=== PATIENT | male | born 1985 | race American Indian/Alaskan Native ===

== ENCOUNTER 2021-07-04 07:35 | Day surgery (SDC) | payer BC ==
[~2021-07-04 07:35] MED LIST: SODIUM CHLORIDE 0.9% 1000 ML 1,000 ML IV SCH
[2021-07-04] MEDS ORDERED: WATER FOR IRRIG STERILE 1,000 ML BOTTLE ONE (07:48)
[2021-07-04] MEDS ORDERED: WATER FOR IRRIG STERILE 250 ML BOTTLE IR ONE (07:49)
[2021-07-04] MEDS ORDERED: propofoL 200 MG/20 ML VIAL IV ONE ×2 (08:08)
--- NOTE | 2021-07-04 09:11 | Procedure Note ---
Date of procedure: 07/04/21 Pre-op diagnosis: Abdominal Pain/ Colitis Post-op diagnosis: other (R/O Microscopic Colitis/ R/O Ileitis/Minor, Internal Hemorrhoids/ No Colon Polyps or diverticular disease noted) Procedure: Colonoscopy with biopsy Anesthesia: MAC Surgeon: PRIYANK ORTIZ Estimated blood loss: minimal Pathology: list Specimen disposition: to lab Condition: stable Disposition: same day (Avoid aspirin and NSAID for 5 days, otherwise resume previous medication. Treat with prn Bentyl for abdominal pain and OTC Probiotic and F/U in 1 to 2 weeks ([phone]).)
--- NOTE | 2021-07-04 09:17 | Operative Report ---
DATE OF SURGERY: 07/04/2021 PROCEDURE PERFORMED: Colonoscopy with biopsy. INDICATIONS: This is a 35-year-old -[place] gentleman in otherwise good health, who about 5 weeks back had COVID-19 infection. He was having abdominal pain that prompted him to go to the ER. CT scan in the ER seem to suggest that he may have colitis. Colonoscopy was done to assess for any associated colitis or any associated lower GI pathology. DESCRIPTION OF PROCEDURE: Procedure was done after getting informed consent with MAC anesthesia. Initial rectal examination was unremarkable. The instrument was passed through the rectum onto the cecum, which was identified with ileocecal valve and the appendiceal orifice. Cecum was also examined on the retroverted view. No additional pathology was noted. The terminal ileum was intubated, showed normal mucosa. Biopsy was done to rule out for possible ileitis. Cecum, ascending colon, transverse colon, descending colon and sigmoid likewise showed normal mucosa. Random biopsies were done to rule out for possible microscopic colitis and the rectum showed some minor internal hemorrhoid on the retroverted view. There was minimal bleeding associated with the biopsies. No complications associated with the procedure. ASSESSMENT: Abdominal pain, rule out microscopic colitis, rule out ileitis, minor internal hemorrhoid. No colon polyps or diverticula noted. PLAN: To treat the patient empirically with a p.r.n. dose of Bentyl for abdominal pain. Encouraged the patient to take probiotics. Avoid aspirin and aspirin-related products and follow up in the office in 1-2 weeks' time. Procedure was done in the GI lab with the assistance of the GI lab team, which included the GI nurse, the quick technician and with assistance of anesthesia. TID: [id number] RECEIPT: [id number] EREN/ASIM
--- NOTE | 2021-07-04 09:26 | Anesthesia Consultation ---
Anesthesia Consult and Med Hx Date of service: 07/04/21 - Airway Anesthetic Teeth Evaluation: Good ROM Head & Neck: Adequate Mental/Hyoid Distance: Adequate Mallampati Class: Class III Intubation Access Assessment: Possibly Difficult - Pre-Operative Health Status ASA Pre-Surgery Classification: ASA2 Proposed Anesthetic Plan: MAC - Pulmonary Hx Smoking: Yes Hx Respiratory Symptoms: No (COVID infection several weeks ago with residual GI symptoms) - Cardiovascular System Hx Hypertension: No - Central Nervous System CVA: No - Endocrine Hx Renal Disease: No Hx Liver Disease: No Hx Insulin Dependent Diabetes: No Hx Non-Insulin Dependent Diabetes: No Hx Thyroid Disease: No - Other Systems Hx Obesity: No
--- NOTE | 2021-07-04 09:26 | Anesthesia Day of Surgery ---
Anesthesia Day of Surgery - Day of Surgery Patient Examined: Yes Patient H&P Reviewed: Yes Patient is NPO: Yes
--- NOTE | 2021-07-04 10:13 | Post Anesthesia Evaluation ---
- Post Anesthesia Evaluation Patient Participated: Yes Airway Patent: Yes Stable Respiratory Function: Yes Nausea/Vomiting: No Temp > 96.8F: Yes Pain Manageable: Yes Adequeate Hydration: Yes Anesthesia Complications: No
[2021-07-04 10:35] VITALS: BP 110/69
== END 2021-07-04 10:45 | disposition home or self-care (01) ==
LOC: GIO 07:35
DX: R10.9 Unspecified abdominal pain (principal); K52.9 Noninfective gastroenteritis and colitis, unspecified; K64.0 First degree hemorrhoids; K63.89 Other specified diseases of intestine; F17.210 Nicotine dependence, cigarettes, uncomplicated; Z79.899 Other long term (current) drug therapy; Z98.890 Other specified postprocedural states
CPT/HCPCS: 45380; 88305; J2704; J7030